=== PATIENT | female | born 1995 | race African-American/Black ===

== ENCOUNTER 2018-02-13 04:35 | Emergency (ER) | payer OTHER ==
[~2018-02-13] VITALS: Ht 162.6 cm; Wt 90.5 kg
[~2018-02-13 04:35] MED LIST: AMOXICILLI400 MG/5 M PO; ATARAX,VISTARIL50 MG PO; CEFDINIR300 MG PO; CLINDAMYCIN HC300 MG PO; FIORICET 50-301 EACH PO; FLEXERIL10 MG PO; LEVAQUIN500 MG PO; MOTRIN800 MG PO; NAPROSYN500 MG PO; NORCO 5/3251 TABLET PO; PYRIDIUM200 MG PO; ZITHROMAX500 MG PO
[2018-02-13] MEDS ORDERED: LEVAQUIN750 MG PO (05:15)
[2018-02-13 06:18] LABS: HEMATOCRIT 31.4 % (36.0-46.0); HEMOGLOBIN 10.3 G/DL (11.9-15.5); MCH 26.7 PG (29.0-34.0); MCHC 32.8 G/DL (30.0-36.0); MCV 81.3 FL (83-99); PLATELET COUNT 316 K/uL (156-360); RBC DIS.WIDTH-CV 14.3 % (11.8-14.6); RBC DIS.WIDTH-SD 42.6 % (39-53); RED BLOOD COUNT 3.86 M/uL (3.80-5.20); WHITE BLOOD COUNT 14.1 K/uL (4.1-10.2)
[2018-02-13 06:27] LABS: ALBUMIN 3.6 g/dL (3.2-4.8); CHLORIDE 104 mEq/L (99-109); POTASSIUM 3.2 mEq/L (3.7-5.4); SODIUM 136 mEq/L (136-147)
[2018-02-13 06:30] LABS: GLUCOSE 156 mg/dL (70-99); TOTAL PROTEIN 7.2 g/dL (6.4-8.3)
[2018-02-13 06:32] LABS: TOTAL BILIRUBIN 0.5 mg/dL (0.0-1.0)
[2018-02-13 06:33] LABS: ALKALINE PHOSPHATASE 53 IU/L (3-129); CREATININE 0.7 mg/dL (0.6-1.3); GFR ESTIMATE (CALCULATED) > 59 mL/min/
[2018-02-13 06:34] LABS: UREA NITROGEN (BUN) 9 mg/dL (9-23)
[2018-02-13 06:35] LABS: AST (GOT) 20 IU/L (2-34)
[2018-02-13 06:36] LABS: ALT (GPT) 28 IU/L (3-49)
[2018-02-13 06:37] LABS: LIPASE 6 U/L (1.0-51.0)
[2018-02-13 06:45] LABS: QUANTITATIVE HCG < 4.0 MIU/ML
[2018-02-13 07:09] LABS: APPEARANCE SL.HAZY ((CLEAR)); BILIRUBIN NEGATIVE; BLOOD NEGATIVE; COLOR YELLOW ((YELLOW)); GLUCOSE (STRIP) NEGATIVE; KETONES 5; LEUKOCYTES NEGATIVE; NITRITE NEGATIVE; PROTEIN (STRIP) 30; SPECIFIC GRAVITY 1.021 (1.000-1.030); UROBILINOGEN 0.2 MG/DL (0.2-1.0)
[2018-02-13] MEDS ORDERED: ZITHROMAX Z-PA250 MG PO (07:14)
[2018-02-13 07:17] LABS: BACTERIA RARE /HPF; EPITHELIAL CELLS RARE /HPF; MUCUS 4+ /LPF; RED BLOOD CELLS 0-5 /HPF (0-5); UCUL ADDED? NO; WHITE BLOOD CELLS 0-5 /HPF (0-5)
[2018-02-13 07:49] VITALS: BP 101/67
== END 2018-02-13 08:08 | disposition home or self-care (01) ==
LOC: EME → EDSEX 04:35 → EME 04:35 → EDBD 04:35 → EME 08:08
PROVIDERS: Emergency Medicine Emergency Medical Services
DX: J18.9 Pneumonia, unspecified organism (principal); R10.9 Unspecified abdominal pain; Z88.6 Allergy status to analgesic agent
CPT/HCPCS: 71046; 80053; 81003; 83690; 84702; 85027; 99281; 99284; J0780